=== PATIENT | male | born 1995 | race Caucasian/White ===

== ENCOUNTER 2018-03-22 22:03 | Emergency (ER) | payer BC ==
[2018-03-22 22:33] VITALS: BP 143/91; PULSE 87; RESP 18; TEMP 97.8
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
[2018-03-22] MEDS ORDERED: diphenhydrAMINE 50 MG/ML 1 ML VIAL IM STA (23:33)
== END 2018-03-22 23:47 | disposition home or self-care (01) ==
LOC: EC 22:03
DX: L55.0 Sunburn of first degree (principal); Z85.830 Personal history of malignant neoplasm of bone; Z92.21 Personal history of antineoplastic chemotherapy; Z88.4 Allergy status to anesthetic agent; Z88.1 Allergy status to other antibiotic agents
CPT/HCPCS: 99282; 96372; J1200

== ENCOUNTER 2018-12-28 16:03 | Emergency (ER) | payer BC ==
--- NOTE | 2018-12-28 18:28 | ED ---
General Adult HPI - General Chief complaint: Extremity Injury, Lower Stated complaint: left leg injury Time Seen by Provider: 12/28/18 16:28 Source: patient Mode of arrival: wheelchair Limitations: no limitations - History of Present Illness Initial comments: Patient is a 23-year-old male with history of osteosarcoma is presenting to the emergency department for left knee pain. Patient reports earlier today he was climbing into his truck when his left knee suddenly "locked out". Patient reports multiple hardware pieces on his left leg due to the osteosarcoma. Patient reports a mild throbbing pain but states that his leg feels "tight" especially with flexion and full extension. Patient also reports swelling on his left knee. Patient reports 3 years ago he broke one of the plates on his knee but has never had his leg lockout like it currently is. Patient denies taking any medication to alleviate the pain. - Related Data Previous Rx's Medication Instructions Recorded hydrOXYzine HCL [Atarax] 25 mg PO QID PRN #30 tab 03/22/18 Allergies Allergy/AdvReac Type Severity Reaction Status Date / Time propofol Allergy Unknown Verified 12/28/18 16:09 tobramycin Allergy Unknown Verified 12/28/18 16:09 Review of Systems ROS Statement: Those systems with pertinent positive or pertinent negative responses have been documented in the HPI. ROS Other: All systems not noted in ROS Statement are negative. 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 infusaport placement and removal. shoulder Past Anesthesia/Blood Transfusion Reactions: Previous Problems w/ Anesthesia, Blood Transfusion Reaction Additional Past Anesthesia/Blood Transfusion Reaction / Comment(s): fever with anesthesia, swelling with propofol Past Psychological History: No Psychological Hx Reported Smoking Status: Never smoker Past Alcohol Use History: Occasional Past Drug Use History: None Reported General Exam Limitations: no limitations General appearance: alert, in no apparent distress Head exam: Present: atraumatic, normocephalic, normal inspection Eye exam: Present: normal appearance Neck exam: Present: normal inspection Respiratory exam: Present: normal lung sounds bilaterally Cardiovascular Exam: Present: regular rate, normal rhythm, normal heart sounds Extremities exam: Present: other (Multiple scar tissues along the lateral medial aspect of the left leg.) Left Upper Leg exam: Present: normal inspection, full ROM Knee exam: Present: tenderness (Mild with palpation), swelling, ecchymosis. Absent: full ROM (Limited), abrasion, laceration, full knee extension Foot/Toe exam: Absent: tenderness at base of 5th metatarsal Neurovascular tendon exam: Present: no vascular compromise Gait: observed and limited by pain Back exam: Present: normal inspection Neurological exam: Present: alert, oriented X3 Psychiatric exam: Present: normal affect, normal mood Skin exam: Present: warm, intact, normal color Course Vital Signs 12/28/18 16:07 Temperature 98.4 F Pulse Rate 93 Respiratory 18 Rate Blood Pressure 129/81 O2 Sat by Pulse 99 Oximetry Medical Decision Making - Medical Decision Making Patient is a 23-year-old male presenting to emergency Department with left knee pain. X-ray of the left knee was obtained and negative for acute dislocations or fractures. Knee immobilizer was placed and patient advised to follow-up with orthopedics. Patient advised to keep the leg elevated and use ice pack and ibuprofen for pain control and swelling. Patient advised to return to emergency department if symptoms worsen. Case discussed with physician. Disposition Clinical Impression: Swelling of knee joint, left Disposition: HOME SELF-CARE Condition: Stable Instructions (If sedation given, give patient instructions): Knee Pain (ED) Additional Instructions: Please keep leg elevated and use ice pack to minimize swelling. Please use ibuprofen for pain control and inflammation. Please follow with orthopedics in please return to emergency department if symptoms worsen. Is patient prescribed a controlled substance at d/c from ED?: No Referrals: None,Stated [Primary Care Provider] - 1-2 days Time of Disposition: 19:18
--- NOTE | 2018-12-28 18:37 | XR ---
EXAMINATION TYPE: XR knee 4V LT DATE OF EXAM: 12/28/2018 COMPARISON: NONE HISTORY: Pain and swelling TECHNIQUE: 4 views FINDINGS: There is intramedullary loraine in the distal femur. There is lateral plate with screws fixing the distal femur. There is some arthritic narrowing medial joint space of the knee. There are vascula r surgical clips. I see no fracture nor dislocation. There is knee joint effusion. IMPRESSION: Previous surgery. Knee joint effusion. No fracture seen.
[2018-12-28 19:31] VITALS: BP 135/75; PULSE 100; RESP 17; TEMP 97.8
== END 2018-12-28 19:28 | disposition home or self-care (01) ==
LOC: EC 16:03
DX: M25.462 Effusion, left knee (principal); Z85.830 Personal history of malignant neoplasm of bone; Z88.4 Allergy status to anesthetic agent; Z88.1 Allergy status to other antibiotic agents
CPT/HCPCS: 99283

== ENCOUNTER → 2022-06-14 | Outpatient (CLI) | payer BC ==
[2022-06-14 14:36] LABS: HCT 45.5 % (39.6-50.0); HGB 15.4 g/dL (13.0-17.0); MCH 29.4 pg (27.0-32.0); MCHC 33.8 g/dL (32.0-37.0); Mean Platelet Volume 9.5 fL (9.5-12.2); NRBC Per 100 WBC 0 /100 WBCS (0.0-0.0); Platelet Count 281 X 10*3/uL (140-440); RBC 5.23 X 10*6/uL (4.40-5.60)
[2022-06-14 16:50] LABS: Erythrocyte Sedimentation Rate 3 mm/Hr (0-15)
== END | disposition home or self-care (01) ==
LOC: LABWHC1 09:15
PROVIDERS: ATTEND Orthopaedic Surgery
DX: Z09 Encounter for follow-up examination after completed treatment for conditions other than malignant neoplasm (principal); M25.462 Effusion, left knee; M17.12 Unilateral primary osteoarthritis, left knee
CPT/HCPCS: 36415; 83520; 85027; 85379; 85652; 86140

== ENCOUNTER → 2023-05-11 | Outpatient (CLI) | payer BC ==
--- NOTE | 2023-05-13 14:18 | MR ---
EXAMINATION TYPE: MR knee LT wo con DATE OF EXAM: 05/11/2023 COMPARISON: Outside left knee x-ray December 28, 2018 HISTORY: Pain in left knee, locking, and swelling for 10 years. History of torn ACL per patient. TECHNIQUE: Multiplanar, multisequence images of the knee is performed without IV contrast. FINDINGS: MEDIAL MENISCUS: Significant Artifact degradation. LATERAL MENISCUS: Significant artifact degradation. CRUCIATE LIGAMENTS: The posterior cruciate ligament is intact. Normal anterior cruciate ligament not identified, full-thickness tear suspected. COLLATERAL LIGAMENTS: Significant artifact degradation. Portions of medial collateral ligament felt intact. EXTENSOR MECHANISM: Visualized quadriceps and patellar tendons are intact. EFFUSION: Moderate to large size suprapatellar joint effusion. POPLITEAL CYST: No popliteal/landry cyst. TRICOMPARTMENT SPACES: Moderate to severe tricompartment joint space loss. Significant artifact degra dation. Most prominent joint space loss medial tibiofemoral compartment. [id number] tricompartm ental spurring is seen. There is surrounding increased T2 signal noted.. CARTILAGE: Significant full thickness chondromalacia patella along the posterior patellar pole. Full- thickness cartilaginous loss medial tibiofemoral compartment. BONE MARROW SIGNAL: There is endplate irregularity and diminished T1 signal with surrounding T2 signa l medial tibial femoral compartment. Some increased T2 signal involving the inferior patella. Suscept ibility artifact from extensive surgical change to the visualized femur is noted. OTHER: No additional significant abnormality is appreciated. IMPRESSION: 1. Suboptimal study with advanced degenerative changes medial tibiofemoral compartment present and mo derate to advanced degenerative changes patellofemoral compartment seen as detailed above likely prom inent for patient's age. 2. Poorly visualized menisci, tearing is suspected based on the degree of joint space loss. 3. Probable complete ACL tear. 4. Moderate to large-sized suprapatellar joint effusion.
== END | disposition home or self-care (01) ==
LOC: RADMRIMAIN 16:37
PROVIDERS: ATTEND Orthopaedic Surgery
DX: M17.12 Unilateral primary osteoarthritis, left knee (principal); M25.462 Effusion, left knee